=== PATIENT | female | born 1995 | race Caucasian/White ===

== ENCOUNTER 2021-05-04 13:38 | Emergency (ER) | payer OTHER, SELFPAY ==
--- NOTE | 2021-05-04 13:59 | XR_ITS ---
PROCEDURE: XR HAND RT MIN 3V CLINICAL INDICATION: PAIN COMPARISON: No exams were available for comparison FINDINGS: No fracture or dislocation. No lytic or blastic change. There is normal mineralization. The joint spaces are well-preserved. No significant degenerative/arthritic changes. No erosive changes evident. Other findings:None. IMPRESSION: No acute findings. Dictated by: Aftab Suarez MD 05/04/2021 14:19 Aftab Suarez MD in [place] 05/04/2021 14:19
[2021-05-04 15:37] VITALS: BP 116/68; PULSE 68; RESP 18; TEMP 36.9; O2SAT 100; BMI 31.7
--- NOTE | 2021-05-04 15:41 | HMH.EDUTC ---
[facility] [place] Clinical Impression: Carpal tunnel syndrome Qualifiers: Laterality: right Qualified Code(s): G56.01 - Carpal tunnel syndrome, right upper limb Disposition: Home, Self-Care Condition on Discharge: Good Instructions: Carpal Tunnel Syndrome, DI for Carpal Tunnel Syndrome, Ibuprofen Additional Instructions: Wear wrist splint this may help with pain to keep wrist in neutral position Over the counter Motrin/Ibuprofen may help with pain Return if needed If pain and symptoms continued follow up with Family Doctor for further evaluation Straight to ER if any life threatening symptoms Referrals: Rowan Roman MD [Primary Care Provider] - As needed Forms: Work/School Release Time of Disposition: 15:47 Medical Decision Making - Maurizio Inquiry Pt receiving controlled substance: No Maurizio was queried for this patient: No Vital Signs: 05/04/21 15:37 Temperature 98.4 F Temperature Source Oral Pulse Rate [Right Radial] 68 Respiratory Rate 18 Blood Pressure [Right Arm] 116/68 Blood Pressure Mean [Right Arm] 84 Blood Pressure Source [Right Arm] Automatic Cuff Blood Pressure Position [Right Arm] Sitting 02 Sat by Pulse Oximetry 100 Oxygen Delivery Method Room Air - Radiology Data #1 Image(s): Wrist Image Reviewed: Yes I have reviewed radiologist's interpretation No acute findings. [facility] [place] - General Stated complaint: [id number] r hand pain Time Seen by Provider: 05/04/21 15:41 Mode of Arrival: Ambulatory Source of Information: Patient Limitations: No Limitations Description of Symptoms (Recalled from Triage Doc. by RN): PT C/O NUMBNESS IN R HAND- THUMB, INDEX FINGER AND RINGER FINGER X1 WEEK. 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 and she has been having pain/tingling in her right thumb, index and middle finger State that symptoms come and go and get worse after she is moving her wrist alot Denies injury and reports has trouble gripping at times - Related Data Allergies Allergy/AdvReac Type Severity Reaction Status Date / Time amoxicillin Allergy Verified 05/04/21 15:40 - Worker's Comp Is this a Worker's Comp case?: No [facility] [place] History - Hepatitis A Screen Drug use history?: No High risk sexual behaviors?: No History of sexually transmitted infection?: No Currently employed?: No Childcare worker?: No Do you have indoor plumbing?: Yes Do you have electricity?: Yes Attestation statement:: This patient has been screened for Hepatitis A risk factors. I have reviewed the patient's past medical history: Yes ROS Obtained: Yes All systems reviewed & no additional complaints, Yes Systems reviewed as appropriate & no additional complaints - Constitutional Constitutional: Reports system reviewed and no additional complaints, except as docu - ENT Ears, Nose, Mouth, and Throat: Reports system reviewed and no additional complaints, except as docu - Cardiovascular Cardiovascular: Reports system reviewed and no additional complaints, except as docu - Respiratory Respiratory: Reports system reviewed and no additional complaints, except as docu - Gastrointestinal Gastrointestingal: Reports: system reviewed and no additional complaints, except as docu - Allergic/Immunologic Comments: Pain in right wrist with tingling and pain in thumb, index and middle finger with difficulty gripping objects Physical Exam - General General appearance: alert, in no apparent distress - Respiratory Respiratory exam: Present: normal lung sounds bilaterally. Absent: respiratory distress - Cardiovascular Cardiovascular exam: Present: regular rate, normal rhythm. Absent: JVD - Expanded Upper Extre
[2021-05-04 15:50] VITALS: BP 132/71; PULSE 76; RESP 18; TEMP 36.8; O2SAT 98
== END 2021-05-04 15:58 | disposition home or self-care (01) ==
PROVIDERS: Emergency Provider Nurse Practitioner; PCP Family Medicine
DX: G56.01 Carpal tunnel syndrome, right upper limb (principal); X50.3XXA Overexertion from repetitive movements, initial encounter; Y92.63 Factory as the place of occurrence of the external cause; Y99.0 Civilian activity done for income or pay
CPT/HCPCS: 73130; 99202; G0463

== ENCOUNTER → 2021-09-07 15:36 | Outpatient (CLI) | payer OTHER, SELFPAY ==
[2021-09-07 16:28] LABS: Basophils # 0.1 K/mm3 (0-0.2); Basophils % 1.1 % (0.1-2.0); Eosinophils # 0.1 K/mm3 (0.0-0.4); Eosinophils % 1.3 % (0.1-12.0); Hematocrit 42.3 % (37.0-47.0); Hemoglobin 13.9 g/dL (12.2-16.2); Lymphocytes # 2.8 K/mm3 (0.7-4.5); Lymphocytes % 33.6 % (10-50); Mean Corpuscular HGB Conc 32.9 g/dL (31.8-35.4); Mean Corpuscular Hemoglobin 30.1 pg (27.0-31.2); Mean Corpuscular Volume 91.3 fl (81-99); Mean Platelet Volume 7.8 fl (7.4-10.4); Monocytes # 0.5 K/mm3 (0.1-1.0); Neutrophils # 4.9 K/mm3 (1.8-7.8); Platelet Count 336 K/mm3 (142-424); Red Blood Count 4.63 M/mm3 (4.20-5.40); Red Cell Distribution Width 12.8 % (11.5-17.5); White Blood Count 8.4 K/mm3 (4.8-10.8)
[2021-09-07 17:11] LABS: Alanine Aminotransferase 16 U/L (12-78); Albumin Level 4.2 g/dl (3.5-5.0); Albumin/Globulin Ratio 1.5 (1.1-1.8); Alkaline Phosphatase 64 U/L (38-126); Anion Gap 12.3 mEq/L (5-15); Aspartate Amino Transferase 23 U/L (14-36); Bilirubin,Total < 0.1 mg/dl (0.2-1.3); Blood Urea Nitrogen 13 mg/dl (7-17); Calcium 9.5 mg/dl (8.4-10.2); Carbon Dioxide 27 mmol/L (22.0-30.0); Chloride 103 mmol/L (98-107); Estimated Glomerular Filt Rate 103 ml/min (>60); GFR (African American) 124 ML/MIN (>60); Globulin 2.8 g/dL (1.3-3.2); Glucose 108 mg/dl (74-100); Magnesium 1.7 mg/dl (1.6-2.3); Potassium 4.3 mmoL/L (3.5-5.1); Sodium 138 mmol/L (136-145)
[2021-09-07 17:29] LABS: Free Thyroxine Index 2.8 ug/dL (5.93-13.13); T4 (Thyroxine) 10.6 ug/dl (5.53-11.0); Triiodothryronine (T3) Uptake 26 % (23.5-40.5)
[2021-09-07 17:30] LABS: 25-OH Vitamin D, Total 24.2 ng/mL (30-100)
[2021-09-07 17:42] LABS: Thyroid Stimulating Hormone 3.04 uIU/mL (0.465-4.68)
[2021-09-07 18:03] LABS: Vitamin B12 349 pg/mL (239-931)
== END ==
PROVIDERS: Visit Provider Internal Medicine Adolescent Medicine
DX: R53.81 Other malaise (principal); R53.83 Other fatigue; Z86.39 Personal history of other endocrine, nutritional and metabolic disease
CPT/HCPCS: 36415; 80053; 82306; 82607; 83735; 84436; 84443; 84479; 85025

== ENCOUNTER 2021-11-01 03:51 | Emergency (ER) | payer OTHER, SELFPAY ==
[2021-11-01 03:53] VITALS: BP 149/88; PULSE 109; RESP 18; TEMP 37.7; O2SAT 98; BMI 31.9
[2021-11-01 04:01] VITALS: BMI 25.0
--- NOTE | 2021-11-01 04:02 | XR_ITS ---
PROCEDURE INFORMATION: Exam: XR Chest Exam date and time: 11/01/2021 4:02 AM Age: 26 years old Clinical indication: Fever; Additional info: Fever, c-19 exposure TECHNIQUE: Imaging protocol: XR of the chest. Views: 2 views. COMPARISON: No relevant prior studies available. FINDINGS: Lungs: Unremarkable. No consolidation. Pleural spaces: Unremarkable. No pleural effusion. No pneumothorax. Heart/Mediastinum: Unremarkable. No cardiomegaly. Bones/joints: Unremarkable. IMPRESSION: No acute findings.
[2021-11-01 04:11] LABS: Appearance,Urine CLEAR (Clear); Bilirubin,Urine Negative (Negative); Blood, Urine Negative (Negative); Color,Urine YELLOW (Yellow); Glucose,Urine (UA) Negative (Negative); Ketones,Urine Negative (Negative); Leukocyte Esterase,Urine Negative (Negative); Microscopic, Urine URINE MICROSCOPIC (MICROSCOPIC); Nitrate,Urine Negative (Negative); Protein,Urine Negative (Negative); Urobilinogen,Urine 0.2 EU/dl (0.2)
[2021-11-01 04:16] LABS: Urine Pregnancy, HCG Qual. Negative (Negative)
[2021-11-01 04:19] LABS: Influenza A, PCR Not Detected (NotDetected); Influenza B, PCR Not Detected (NotDetected)
[2021-11-01 04:21] LABS: Basophils # 0.1 K/mm3 (0-0.2); Basophils % 1.6 % (0.1-2.0); Eosinophils # 0.1 K/mm3 (0.0-0.4); Eosinophils % 1.5 % (0.1-12.0); Hematocrit 43.9 % (37.0-47.0); Hemoglobin 14.4 g/dL (12.2-16.2); Lymphocytes # 0.8 K/mm3 (0.7-4.5); Lymphocytes % 17.8 % (10-50); Mean Corpuscular HGB Conc 32.7 g/dL (31.8-35.4); Mean Corpuscular Hemoglobin 29.8 pg (27.0-31.2); Mean Corpuscular Volume 90.9 fl (81-99); Mean Platelet Volume 7.6 fl (7.4-10.4); Monocytes # 0.4 K/mm3 (0.1-1.0); Monocytes % 8.7 % (1.7-9.3); Neutrophils # 3.1 K/mm3 (1.8-7.8); Neutrophils % 70.4 % (37.0-80.0); Platelet Count 290 K/mm3 (142-424); Red Blood Count 4.83 M/mm3 (4.20-5.40); White Blood Count 4.4 K/mm3 (4.8-10.8)
[2021-11-01 04:28] LABS: Strep Scrn Group A (Rapid) Negative (Negative)
[2021-11-01 04:34] LABS: Alanine Aminotransferase 24 U/L (12-78); Albumin Level 4.5 g/dl (3.5-5.0); Albumin/Globulin Ratio 1.4 (1.1-1.8); Alkaline Phosphatase 62 U/L (38-126); Anion Gap 10.3 mEq/L (5-15); Aspartate Amino Transferase 29 U/L (14-36); Bilirubin,Total 0.3 mg/dl (0.2-1.3); Blood Urea Nitrogen 13 mg/dl (7-17); Calcium 9.1 mg/dl (8.4-10.2); Carbon Dioxide 27 mmol/L (22.0-30.0); Chloride 104 mmol/L (98-107); Creatinine Clearance Estimated 104 mL/min (50-200); Estimated Glomerular Filt Rate 77 ml/min (>60); GFR (African American) 93 ML/MIN (>60); Globulin 3.2 g/dL (1.3-3.2); Glucose 84 mg/dl (74-100); Potassium 4.3 mmoL/L (3.5-5.1); Sodium 137 mmol/L (136-145); Total Protein,Serum 7.7 g/dl (6.3-8.2)
[2021-11-01 04:34] LABS: Bacteria,Urine Trace /lpf; WBC,Urine Occasional #/hpf (0-3)
[2021-11-01 04:37] LABS: Coronavirus 19, PCR Detected (NotDetected)
[2021-11-01 04:39] LABS: C-Reactive Protein 8.1 mg/L (0-4)
[2021-11-01 04:53] LABS: Procalcitonin 0.062 ng/mL (0.0-2.0)
[2021-11-01 05:07] LABS: Erythrocyte Sedimentation Rate 27 mm/hr (0-20)
[2021-11-01 06:12] VITALS: BP 125/73; PULSE 83; RESP 18; TEMP 36.9; O2SAT 97
--- NOTE | 2021-11-01 06:14 | HMH.EDURI ---
ED Disposition Clinical Impression: COVID-19 Disposition: Home, Self-Care Condition on Discharge: Good Instructions: DI for COVID-19 (Suspected or Confirmed ) Additional Instructions: see pcp for follow up Prescriptions: dexAMETHasone [Decadron] 6 mg PO DAILY #6 tab Transmission Status: Pending to [facility]/pharmacy #[id number] Referrals: Ben Phelan MD [Primary Care Provider] - - Critical Care Critical Care Time: No Attestation: On 11/01/21, the high probability of a clinically significant, sudden or life threatening deterioration of the following system(s) required my full and direct attention, intervention and personal management. The time I documented below is in addition to time spent performing reported procedures but includes the following listed in this critical care notation. Medical Decision Making - Medical Records Medical records reviewed: Yes: I reviewed the patient's medical records. - Maurizio Inquiry Pt receiving controlled substance: No Vital Signs: 11/01/21 03:53 Temperature 99.9 F H Temperature Source Oral Pulse Rate [Right] 109 H Respiratory Rate 18 Blood Pressure [Right Arm] 149/88 H Blood Pressure Mean [Right Arm] 108 Blood Pressure Source [Right Arm] Automatic Cuff 02 Sat by Pulse Oximetry 98 Oxygen Delivery Method Room Air - Lab Data Lab results reviewed: Yes: I reviewed the patient's lab results. Lab Results 11/01/21 04:05: Urine Color Yellow, Urine Appearance Clear, Urine pH 7.0, Ur Specific Mcdermott 1.020, Urine Protein Negative, Urine Glucose (UA) Negative, Urine Ketones Negative, Urine Blood Negative, Urine Nitrate Negative, Urine Bilirubin Negative, Urine Urobilinogen 0.2, Ur Leukocyte Esterase Negative, Urine WBC Occasional, Ur Squamous Epith Cells 3-5, Urine Bacteria Trace 11/01/21 04:05: Urine HCG, Qual Negative 11/01/21 04:10: SARS-CoV-2 (PCR) Detected A, Influenza A Untype (PCR) Not detected, Influenza Type B (PCR) Not detected 11/01/21 04:10: WBC 4.4 L, RBC 4.83, Hgb 14.4, Hct 43.9, MCV 90.9, MCH 29.8, MCHC 32.7, RDW 13.0, Plt Count 290, MPV 7.6, Neut % (Auto) 70.4, Lymph % (Auto) 17.8, [place] % (Auto) 8.7, Eos % (Auto) 1.5, Baso % (Auto) 1.6, Neut # (Auto) 3.1, Lymph # (Auto) 0.8, [place] # (Auto) 0.4, Eos # (Auto) 0.1, Baso # (Auto) 0.1, ESR 27 H 11/01/21 04:10: Sodium 137, Potassium 4.3, Chloride 104, Carbon Dioxide 27, Anion Gap 10.3, BUN 13, Creatinine 0.90, Estimated Creat Clear 104, Estimated GFR 77, Est GFR ( Amer) 93, Glucose 84, Calcium 9.1, Total Bilirubin 0.3, AST 29, ALT 24, Alkaline Phosphatase 62, C-Reactive Protein 8.1 H, Total Protein 7.7, Albumin 4.5, Globulin 3.2, Albumin/Globulin Ratio 1.4, Procalcitonin 0.062 11/01/21 04:10: Group A Strep Rapid Negative Result diagrams: 11/01/21 04:10 11/01/21 04:10 Orders (Tests/Meds): ED MEDICATIONS Generic Name Dose Route Start Last Admin Trade Name Freq PRN Reason Stop Dose Admin Lactated Ringer's 1,000 mls @ 999 mls/hr 11/01/21 04:15 11/01/21 04:13 Lactated Ringer's 1000 Ml Bag IV 11/01/21 05:15 999 mls/hr .Q1H1M SHAHLA Administration Lactated Ringer's 1,000 mls @ 999 mls/hr 11/01/21 05:30 11/01/21 05:30 Lactated Ringer's 1000 Ml Bag IV 11/01/21 06:30 999 mls/hr .Q1H1M SHAHLA Administration Sodium Chloride 8 ml 11/01/21 04:04 Sodium Chloride 0.9% 10ml Vial IV 12/01/21 04:03 NEEDED PRN dilute pepcid Discontinued Medications Generic Name Dose Route Start Last Admin Trade Name Freq PRN Reason Stop Dose Admin Dexamethasone Sodium Phosphate 10 mg 11/01/21 04:14 11/01/21 04:20 Dexamethasone 4mg/Ml 5ml Mdv IV 11/01/21 04:15 10 mg ONCE ONE Administration Famotidine 20 mg 11/01/21 04:04 11/01/21 04:13 Famotidine 20mg/2ml Vial IV 11/01/21 04:05 20 mg ONCE ONE Administration Ketorolac Tromethamine 30 mg 11/01/21 04:04 11/01/21 04:13 Ketorolac 30mg/Ml Vial IV 11/01/21 04:05 30 mg ONCE ONE Administration Metoclopramide HCl 10 mg 02
== END 2021-11-01 06:28 | disposition home or self-care (01) ==
PROVIDERS: Emergency Provider Emergency Medicine; PCP Internal Medicine Adolescent Medicine
DX: U07.1 COVID-19 (principal); R50.9 Fever, unspecified
CPT/HCPCS: 71046; 80053; 81001; 81025; 84145; 85025; 85651; 86140; 87430; 96365; 96366; 96375; 99284; C9803; J2405; U0003; U0005

== ENCOUNTER → 2023-05-08 16:44 | Outpatient (CLI) | payer BC, SELFPAY ==
--- NOTE | 2023-05-08 16:48 | MR_ITS ---
PROCEDURE INFORMATION: Exam: MR Head Without Contrast Exam date and time: 05/08/2023 4:49 PM Age: 28 years old Clinical indication: Dizziness; Additional info: Vertigo TECHNIQUE: Imaging protocol: Magnetic resonance imaging of the head without contrast. COMPARISON: No relevant prior studies available. FINDINGS: Brain: Basilar cisterns are normal. Tectum normal. No acute intracranial process. Cerebellar pontine angles are normal Cerebral ventricles: Normal. No ventriculomegaly. Pituitary gland and sella: Sella normal. Pre-pontine region, suprasellar region, and cerebellar angles are normal. Bones/joints: Clivus normal. Calvarium is normal marrow signal. Paranasal sinuses: See Auditory system finding. Mastoid air cells: Normal as visualized. No mastoid effusion. Auditory system: Middle ears are well aerated. Sinuses are well aerated. Orbital cavities: Unremarkable. Pharynx: Prominence of the adenoids Soft tissues: Soft tissues are unremarkable Other findings: No bleed, mass, or shift of structures. Diploe is normal. No diffusion restricted segments. Infundibulum is midline IMPRESSION: No acute intracranial process.
== END ==
LOC: RAD 16:44
PROVIDERS: PCP Internal Medicine Adolescent Medicine; Visit Provider Internal Medicine Adolescent Medicine
DX: R42 Dizziness and giddiness (principal)
CPT/HCPCS: 70551

== ENCOUNTER 2023-05-10 01:53 | Emergency (ER) | payer BC, SELFPAY ==
[2023-05-10 01:56] VITALS: BP 161/95; PULSE 82; RESP 16; TEMP 36.8; O2SAT 98; BMI 35.3
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
[2023-05-10 02:13] VITALS: BP 161/95; PULSE 82; RESP 16; TEMP 36.8; O2SAT 98
== END 2023-05-10 02:16 | disposition home or self-care (01) ==
LOC: ER 02:14
PROVIDERS: Emergency Provider Emergency Medicine; PCP Internal Medicine Adolescent Medicine
DX: S06.0X0A Concussion without loss of consciousness, initial encounter (principal); R11.2 Nausea with vomiting, unspecified; Y04.8XXA Assault by other bodily force, initial encounter
CPT/HCPCS: 99283

== ENCOUNTER → 2023-05-29 16:04 | Outpatient (CLI) | payer BC, SELFPAY ==
--- NOTE | 2023-05-29 16:44 | XR_ITS ---
PROCEDURE INFORMATION: Exam: XR Chest Exam date and time: 05/29/2023 4:46 PM Age: 28 years old Clinical indication: Other: Palpations; Additional info: Palpitations/abnl ecg TECHNIQUE: Imaging protocol: Radiologic exam of the chest. Views: 2 views. COMPARISON: CR XR CHEST 2V 11/01/2021 4:22 AM FINDINGS: Lungs: Normal. Pleural spaces: Normal No pleural effusion. No pneumothorax. Heart/Mediastinum: Normal. No cardiomegaly. Bones/joints: Unremarkable. IMPRESSION: No acute findings.
[2023-05-29 17:09] LABS: Basophils # 0.1 K/mm3 (0-0.2); Basophils % 0.8 % (0.1-2.0); Eosinophils # 0.1 K/mm3 (0.0-0.4); Eosinophils % 1.2 % (0.1-12.0); Hematocrit 44.4 % (37.0-47.0); Hemoglobin 14.2 g/dL (12.2-16.2); Lymphocytes # 2.5 K/mm3 (0.7-4.5); Lymphocytes % 24.8 % (10-50); Mean Corpuscular HGB Conc 31.9 g/dL (31.8-35.4); Mean Corpuscular Hemoglobin 27.7 pg (27.0-31.2); Mean Platelet Volume 7.4 fl (7.4-10.4); Monocytes # 0.9 K/mm3 (0.1-1.0); Monocytes % 8.5 % (1.7-9.3); Neutrophils # 6.6 K/mm3 (1.8-7.8); Neutrophils % 64.7 % (37.0-80.0); Platelet Count 329 K/mm3 (142-424); Red Blood Count 5.11 M/mm3 (4.20-5.40); Red Cell Distribution Width 13.4 % (11.5-17.5); White Blood Count 10.2 K/mm3 (4.8-10.8)
[2023-05-29 17:55] LABS: Chloride 106 mmol/L (98-107); Potassium 4.4 mmoL/L (3.5-5.1); Sodium 139 mmol/L (136-145)
[2023-05-29 17:57] LABS: Alanine Aminotransferase 38 U/L (12-78); Anion Gap 16.4 mEq/L (5-15); Aspartate Amino Transferase 38 U/L (14-36); Blood Urea Nitrogen 17 mg/dl (7-17); Carbon Dioxide 21 mmol/L (22.0-30.0); Cholesterol 179 mg/dl (140-200); Estimated Glomerular Filt Rate 101 ml/min (>60); GFR (African American) 122 ML/MIN (>60); Triglycerides 201 mg/dl (30-150); VLDL Cholesterol 40 mg/dL (0-40)
[2023-05-29 17:58] LABS: Albumin Level 4.2 g/dl (3.5-5.0); Alkaline Phosphatase 80 U/L (38-126); Bilirubin,Direct 0.3 mg/dl (0.0-0.4); Bilirubin,Total 0.3 mg/dl (0.2-1.3); Calcium 9.1 mg/dl (8.4-10.2); Chol/HDL Ratio 5.4 (1-3.5); Glucose 89 mg/dl (74-100); HDL Cholesterol 33 mg/dl (40-60); Magnesium 1.8 mg/dl (1.6-2.3); Total Protein,Serum 7.4 g/dl (6.3-8.2)
[2023-05-29 18:09] LABS: Direct LDL Cholesterol 94.49 mg/dL (100-129)
[2023-05-29 18:15] LABS: Free T4 (Free Thyroxine) 0.83 ng/dl (0.78-2.19)
[2023-05-29 18:28] LABS: Thyroid Stimulating Hormone 4.11 uIU/mL (0.465-4.68)
[2023-05-29 18:48] LABS: Hemoglobin A1C 5.4 % (4.0-6.0)
== END ==
PROVIDERS: PCP Internal Medicine Adolescent Medicine; Visit Provider Physician Assistant
DX: R00.0 Tachycardia, unspecified (principal); R94.31 Abnormal electrocardiogram [ECG] [EKG]; R06.00 Dyspnea, unspecified; R00.2 Palpitations; R42 Dizziness and giddiness
CPT/HCPCS: 36415; 71046; 80048; 80061; 80076; 83036; 83735; 84439; 84443; 85025

== ENCOUNTER → 2023-05-31 13:56 | Outpatient (CLI) | payer BC, SELFPAY | LOC: RT 13:57 | PROVIDERS: PCP Internal Medicine Adolescent Medicine; Visit Provider Physician Assistant | DX: R06.00 Dyspnea, unspecified (principal); R42 Dizziness and giddiness; R00.2 Palpitations; R94.31 Abnormal electrocardiogram [ECG] [EKG]; R00.0 Tachycardia, unspecified | CPT/HCPCS: 93225 ==

== ENCOUNTER → 2023-06-20 07:47 | Outpatient (CLI) | payer BC, SELFPAY ==
--- NOTE | 2023-06-20 07:50 | CA_ITS ---
APPROVED REPORT EXAM: Comprehensive 2D, Doppler, and color-flow Echocardiogram [employer] Relations Recruiter: Ifrah Yin, RCS, RVS Ht: 5 ft 4 in Wt: 217lbs BSA: 2.03 BP: 133/73 mmHg Indications: Abn EKG, Palpitations, dizziness, Ex-smoker, now Vaping 2D Dimensions Aortic Root 2.88 cm LA Volume 31.90 mL Left Atrium 3.07 cm LA Volume Index 15.40 mL/m2 (M/F) 16-34 LVOT 2.11 cm (M/F) 1.5-2.5 M-Mode Dimensions RVDd 2.56 cm (0.9-2.6) LA Diam 3.20 cm (1.9-4.0) LVDd 5.04 cm (3.5-5.7) Ao Diam 2.79 cm (2.0-3.7) LVDs 3.46 cm (3.5-5.7) IVSd 0.84 cm (0.6-1.1) PWd 0.84 cm (0.6-1.1) EF (Teich) 58.90% EPSs 0.61 cm FS 31.30% EDV (Teich) 120.50 mL TAPSE 1.51 (<1.7) ESV (Teich) 49.50 mL LV Diastology E Decel Time 310.00 (160-240 msec) E/A Ratio 1.40 MED E' 9.00 (< 7 cm/sec) MED A' 7.20 cm/s E'/MED E' Ratio 5.77 (>14) LAT E' 11.00 (<10 cm/sec) LAT A' 9.40 cm/s E/LAT E' Ratio 4.72 (>14) Aortic Valve LVOT Max 79.00 (70-110 cm/s) LVOT VTI 17.60 cm AoV Peak Jeremiah. 101.00 (50-130 cm/s) AO Peak GR. 4.10 mmHg AO Mean GR. 2.10 (<5 mmHg) AO VTI 20.35 (18-25 cm) NICOLAS (VTI) 3.02 (2.5-4.5 cm2) Mitral Valve MV A Velocity 37.00 (40-130 cm/s) E/A Ratio 1.40 MV Decel. Time 310.00 (160-240 ms) Pulmonary Valve PV Peak Velocity 104.00 (50-150 cm/s) DC End VMAX 150.00 cm/s Tricuspid Valve TR P. Velocity 159.00 cm/s RAP Estimate 10.00 mmHg RVSP 20.10 mmHg Left Ventricle The left ventricle is normal size. The left ventricular systolic function is normal. The left ventricular ejection fraction is within the normal range. There is normal left ventricular wall thickness. There is normal LV segmental wall motion. The left ventricular diastolic function is normal. LVEF is 55%. Right Ventricle The right ventricle is normal size. The right ventricular systolic function is normal. Atria The left atrium size is normal. The right atrium size is normal. There is no Doppler evidence of interatrial shunt. Aortic Valve The aortic valve opens well. There is no aortic valvular stenosis. No aortic regurgitation is present. Mitral Valve The mitral valve is normal in structure. Trace mitral regurgitation. Tricuspid Valve The tricuspid valve leaflets are thin and pliable. Trace tricuspid regurgitation. There is insufficient TR jet to estimate RVSP. Pulmonic Valve The pulmonary valve is normal in structure. Trace pulmonic regurgitation. Great Vessels The aortic root is normal in size. The ascending aorta is normal in size. IVC is normal in size and collapses >50% with inspiration. Pericardium There is no pericardial effusion. Other Information Study Quality: Fair Conclusion Normal biventricular systolic function. No significant valvular stenosis or regurgitation. Electronically signed by : Apoorva Choi MD 06/22/2023 16:52:59
== END ==
LOC: RT 07:47
PROVIDERS: PCP Internal Medicine Adolescent Medicine; Visit Provider Physician Assistant
DX: R00.0 Tachycardia, unspecified (principal); R00.2 Palpitations; R06.00 Dyspnea, unspecified; R42 Dizziness and giddiness; R94.31 Abnormal electrocardiogram [ECG] [EKG]
CPT/HCPCS: 93306

== ENCOUNTER → 2023-06-24 10:45 | Outpatient (CLI) | payer BC, SELFPAY ==
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
== END ==
LOC: RAD 10:46
PROVIDERS: PCP Internal Medicine Adolescent Medicine; Visit Provider Nurse Practitioner Family
DX: R40.4 Transient alteration of awareness; R42 Dizziness and giddiness; Z87.828 Personal history of other (healed) physical injury and trauma; G47.8 Other sleep disorders; H93.19 Tinnitus, unspecified ear; R06.83 Snoring
CPT/HCPCS: 70553; A9576

== ENCOUNTER → 2023-06-25 13:54 | Outpatient (CLI) | payer BC, SELFPAY | PROVIDERS: PCP Internal Medicine Adolescent Medicine; Visit Provider Nurse Practitioner Family | DX: R42 Dizziness and giddiness (principal); R40.4 Transient alteration of awareness; R06.83 Snoring; G47.8 Other sleep disorders; S06.0XAA Concussion with loss of consciousness status unknown, initial encounter; Z87.828 Personal history of other (healed) physical injury and trauma | CPT/HCPCS: G0399 ==

== ENCOUNTER → 2023-07-08 15:30 | Outpatient (CLI) | payer BC, SELFPAY | LOC: RT 15:30 | PROVIDERS: PCP Internal Medicine Adolescent Medicine; Visit Provider Nurse Practitioner Family | DX: R00.0 Tachycardia, unspecified (principal); R00.2 Palpitations; R06.00 Dyspnea, unspecified; R94.31 Abnormal electrocardiogram [ECG] [EKG] | CPT/HCPCS: 93270 ==

== ENCOUNTER → 2023-07-11 13:50 | Outpatient (CLI) | payer BC, SELFPAY ==
--- NOTE | 2023-07-11 13:50 | CA_ITS ---
APPROVED REPORT Exam: Exercise Treadmill Technologist: Alis Fritz, Ht: 5 ft 4 in Wt: 212 lbs BSA: 2.01 m2 HR: 82 bpm BP: 128/62 mmHg Rhythm: NSR Indications: SOB, Dizziness Medical History Medications: Flonase,,,,, Meclizine,,,,, Levocetirizine,,,,, WEgovy,,,,, Stress Test Details Test: Adithya HR Resting HR: 95 bpm Max Heart Rate (APMHR): 194 bpm Max HR Achieved: 192 bpm Target HR (85% APMHR): 165 bpm % of APMHR: 99 Recovery HR: 112 bpm HR response to stress: Normal HR response to stress BP Resting BP: 146.0/81.0 mmHg Max BP: 186.0/70.0 mmHg Recovery BP: 140.0/73.0 mmHg BP response to stress: Normal blood pressure response to stress. ECG Resting ECG: NSR, NS T wave abn. Stress ECG: < 0.[address] depression Arrhythmia: None Recovery ECG: Return to baseline within 3 minutes of recovery Recovery Arrhythmia: None Clinical Exercise duration: 06:31 min Highest Stage Achieved: III Exercise capacity: 7.0 METs Overall Exercise Capacity for Age: Poor Stress ECG Conclusion The patient was able to exercise for a total of 6 minutes, 31 seconds. She achieved a total of 7 METS. She has poor exercise capacity compared to age and sex matched peers. She has normal HR and BP response to exercise. Max HR: 192 % of PM: 99% Max BP: 186/70 METs: 7.0 Test stopped due to: SOA, Fatigue Symptoms: SOA, light-headed in recovery. Mild chest pressure. Arrhythmias/Ectopy: None. ST-T Changes: No significant ST changes Conclusion: Poor exercise capacity. No significant ST changes at peak stress. GXT only (no imaging) Test Summary REST . . . . . . . Sitting REST 03:07 0.0 0.0 95 . 146/ 81 . . Stage 1 01:00 10.0 1.7 128 . . . . Stage 1 02:00 10.0 1.7 145 . . . . Stage 1 03:00 10.0 1.7 151 . 184/ 70 . . Stage 2 01:00 12.0 2.5 162 . . . . Stage 2 02:00 12.0 2.5 178 . . . . Stage 2 03:00 12.0 2.5 183 . 186/ 70 . . Stage 3 00:31 14.0 3.4 191 . . . Stop exercise at 06:31 RECOVERY 01:00 0.0 0.0 173 . . . . RECOVERY 02:00 0.0 0.0 144 . 140/ 85 . . RECOVERY 03:00 0.0 0.0 133 . 140/ 85 . . RECOVERY 04:00 0.0 0.0 118 . 161/ 89 . . RECOVERY 05:00 0.0 0.0 123 . 140/ 73 . . RECOVERY 05:58 0.0 0.0 115 . 140/ 73 . . Electronically signed by : Apoorva Choi MD 08/05/2023 13:05:00
== END ==
PROVIDERS: PCP Internal Medicine Adolescent Medicine; Visit Provider Nurse Practitioner Family
DX: R94.31 Abnormal electrocardiogram [ECG] [EKG] (principal); R60.0 Localized edema; R00.0 Tachycardia, unspecified; R00.2 Palpitations
CPT/HCPCS: 93017; 93018

== ENCOUNTER 2024-02-05 17:54 | Emergency (ER) | payer BC, SELFPAY ==
[2024-02-05 17:57] VITALS: BP 123/75; PULSE 77; RESP 13; TEMP 36.9; O2SAT 98; BMI 30.9
--- NOTE | 2024-02-05 17:58 | ED_ITS ---
Discharge Plan Disposition Patient Disposition: Home, Self-Care Condition: Fair Prescriptions Prescriptions: New bacitracin zinc-polymyxin B 500-10,000 unit/gram ointment 1 applic topical TID Qty: 28.4 0RF No Action meclizine 25 mg tablet PO TID Patient Comments: 1 TAB(S) ORALLY 3 TIMES A DAY NEEDED FOR DIZZINESS 30 DAYS levocetirizine 5 mg tablet 5 mg PO DAILY Qty: 120 4RF Wegovy 1 mg/0.5 mL pen injector 1.7 mg SQ fluticasone propionate [Flonase Allergy Relief] 50 mcg/actuation spray,suspension 2 spray intranasal DAILY Qty: 16 2RF Rx Instructions: administer into each nostril Referrals Follow up/Referrals: Ben Phelan MD [Primary Care Provider] - See instructions Activity Restrictions/Add. Instructions Additional Instructions/Restrictions: Please follow-up with your PCP closely for wound monitoring. Return to the ER for any worsening signs or symptoms as needed Clinical Impressions Clinical Impression: Second degree burn of back Qualifiers: Encounter type: initial encounter Qualified Code(s): T21.24XA - Burn of second degree of lower back, initial encounter Stand Alone Forms Stand Alone Forms: Work/School Release Instructions Patient Instructions: DI for Skin Abscess Discharge ED Provider: Rafi Khan General Adult HPI <JULIUS Zavaleta - Last Filed: 02/05/24 19:12> General Chief complaint: Skin/Abscess/Foreign Body Stated complaint: blisters on back, sunburn Time Seen by Provider: 02/05/24 17:57 History of Present Illness HPI narrative: Patient presents for evaluation of a sunburn. Patient reports that she mistakenly put tanning oil on instead of sunblock while cleaning her parents pool. Patient has had exquisite pain of her upper back and realized that she has a significant sunburn. Patient has tried aloe vera which is irritating and nothing seems to be working. She denies fever chills hemoptysis hematochezia melena nausea vomiting diarrhea. Related Data Home Medications Medication Instructions Recorded Confirmed meclizine 25 mg tablet mg PO TID 05/16/23 08/28/23 semaglutide (weight loss) 1 mg/0.5 1.7 mg SQ 08/28/23 08/28/23 mL subcutaneous pen injector (Wegovy) Previous Rx's Medication Instructions Recorded levocetirizine 5 mg tablet 5 mg PO DAILY #120 tabs 05/16/23 fluticasone propionate 50 2 spray intranasal DAILY #16 grams 05/21/23 mcg/actuation nasal spray,suspension (Flonase Allergy Relief) bacitracin zinc 500 unit-polymyxin 1 applic topical TID #28.4 grams 02/05/24 B 10,000 unit/gram topical ointment Allergies Allergy/AdvReac Type Severity Reaction Status Date / Time amoxicillin Allergy Verified 08/28/23 09:59 ciprofloxacin [From Ciprodex] AdvReac Intermediate Verified 08/28/23 09:59 dexamethasone [From Ciprodex] AdvReac Intermediate Verified 08/28/23 09:59 PFSH <JULIUS Zavaleta - Last Filed: 02/05/24 19:12> [facility] Disclaimer: The information contained in this section may have been updated after the patient was seen, as this information can be updated by other users. Medical History Racing heart beat Tinnitus Vertigo Family History Other Diabetes Social History Smoking Status: Current every day smoker alcohol intake: never current occupational status: employed Travel in the last 8 weeks: None <JULIUS Zavaleta - Last Filed: 02/05/24 19:12> ROS Obtained: Yes Systems reviewed as appropriate & no additional complaints except as documented Physical Exam <JULIUS Zavaleta - Last Filed: 02/05/24 19:12> General General appearance: alert and in no apparent distress Respiratory Respiratory exam: Present normal lung sounds bilaterally Cardiovascular Cardiovascular exam: Present regular rate and normal rhythm Neurological Exam Neurological exam: Present alert and oriented X3 Other Other exam information: Patient has the entirety of her upper back as a sunburn however in the very center of the thoracic portion of her back she has a 25 cm wide by 9 cm long area of dense blistering indicative of second-degree. The area of first-degree versus second-degree is approximately 1-1. Blisters are currently intact and no evidence of cellulitis or purulence noted. Medical Decision Making <JULIUS Zavaleta - Last Filed: 02/05/24 19:12> Medical Records Medical records reviewed: Yes I reviewed the patient's medical records. Maurizio Inquiry Pt receiving controlled substance: No Vital Signs: 02/05/24 17:57 02/05/24 19:01 Temperature 98.4 F 98.4 F Temperature Source Oral Pulse Rate 74 Pulse Rate [Left Radial] 77 Respiratory Rate 13 16 Blood Pressure 133/79 Blood Pressure [Right Arm] 123/75 Blood Pressure Mean [Right Arm] 91 02 Sat by Pulse Oximetry 98 Oxygen Delivery Method Room Air Orders (Tests/Meds): ED MEDICATIONS Discontinued Medications Generic Name Dose Route Start Last Admin Trade Name Freq PRN Reason Stop Dose Admin Acetaminophen 1,000 mg 02/05/24 18:15 02/05/24 18:38 Acetaminophen 500mg Tab PO 02/05/24 18:16 1,000 mg ONCE ONE Administration Bacitracin 1 gm 02/05/24 21:00 02/05/24 18:38 Bacitracin Zinc Oint 30gm Tube TP 03/06/24 20:59 1 gm QID SHAHLA Administration Ketorolac Tromethamine 30 mg 02/05/24 18:15 02/05/24 18:38 Ketorolac 30mg/Ml Vial IM 02/05/24 18:16 30 mg ONCE ONE Administration Medical Decision Narrative: In summary patient is a 29-year-old female who presents to the emergency department for evaluation of sunburn. Patient is hemodynamically stable upon arrival, afebrile. Physical exam is remarkable for approximately 2% body surface area of second-degree burn with approximately 9% total area of burn. Differential diagnosis includes secondary versus possible third-degree however third-degree cannot be assessed currently due to intact blisters which I will not plan to take down. Initial workup is deferred but should she develop tachycardia fever increasing redness or purulent drainage I would consider hematologic lab workup. Intervention is bacitracin sent application, Toradol, and Tylenol. Had interactive discussion with the patient regarding burn care patient verbalized understanding and agreement. Patient is appropriate for discharge with a prescription for bacitracin zinc sent to her pharmacy and recommendations follow-up closely with her PCP or return to ER as needed for any worsening signs or symptoms. <Rafi Khan MD - Last Filed: 02/05/24 19:15> Vital Signs: 02/05/24 17:57 02/05/24 19:01 Temperature 98.4 F 98.4 F Temperature Source Oral Pulse Rate 74 Pulse Rate [Left Radial] 77 Respiratory Rate 13 16 Blood Pressure 133/79 Blood Pressure [Right Arm] 123/75 Blood Pressure Mean [Right Arm] 91 02 Sat by Pulse Oximetry 98 Oxygen Delivery Method Room Air Orders (Tests/Meds): ED MEDICATIONS Discontinued Medications Generic Name Dose Route Start Last Admin Trade Name Sheeba PRN Reason Stop Dose Admin Acetaminophen 1,000 mg 02/05/24 18:15 02/05/24 18:38 Acetaminophen 500mg Tab PO 02/05/24 18:16 1,000 mg ONCE ONE Administration Bacitracin 1 gm 02/05/24 21:00 02/05/24 18:38 Bacitracin Zinc Oint 30gm Tube TP 03/06/24 20:59 1 gm QID SHAHLA Administration Ketorolac Tromethamine 30 mg 02/05/24 18:15 02/05/24 18:38 Ketorolac 30mg/Ml Vial IM 02/05/24 18:16 30 mg ONCE ONE Administration Medical Decision Narrative: In summary patient is a 29-year-old female who presents to the emergency department for evaluation of sunburn. Patient is hemodynamically stable upon arrival, afebrile. Physical exam is remarkable for approximately 2% body surface area of second-degree burn with approximately 9% total area of burn. Differential diagnosis includes secondary versus possible third-degree however third-degree cannot be assessed currently due to intact blisters which I will not plan to take down. Initial workup is deferred but should she develop tachycardia fever increasing redness or purulent drainage I would consider hematologic lab workup. Intervention is bacitracin sent application, Toradol, and Tylenol. Had interactive discussion with the patient regarding burn care patient verbalized understanding and agreement. Patient is appropriate for discharge with a prescription for bacitracin zinc sent to her pharmacy and recommendations follow-up closely with her PCP or return to ER as needed for any worsening signs or symptoms. I was consulted by the BELKIS, and we discussed the complexity of the problems being addressed. I approved the treatment and management plan for this patient?s care in the Emergency Department, thus performing a substantive portion of the medical decision making. Rafi Khan MD Critical Care <JULIUS Zavaleta - Last Filed: 02/05/24 19:12> Critical Care Time Critical Care Time: No
[2024-02-05] MEDS: ACETAMINOPHEN 500MG TAB 1000 MG PO (18:38)
[2024-02-05] MEDS: BACITRACIN ZINC OINT 30GM TUBE TP (18:38)
[2024-02-05] MEDS: KETOROLAC 30MG/ML VIAL 30 MG IM (18:38)
[2024-02-05 19:01] VITALS: BP 133/79; PULSE 74; RESP 16; TEMP 36.9; O2SAT 98
== END 2024-02-05 19:02 | disposition home or self-care (01) ==
PROVIDERS: Emergency Provider Emergency Medicine; PCP Internal Medicine Adolescent Medicine
DX: L55.1 Sunburn of second degree; X32.XXXA Exposure to sunlight, initial encounter
CPT/HCPCS: 96372; 99283